=== PATIENT | female | born 1930 | race Caucasian/White ===

== ENCOUNTER 2017-06-28 18:37 | Emergency (ER) | payer OTHER ==
[~2017-06-28] VITALS: Ht 162.6 cm; Wt 74.0 kg
[~2017-06-28 18:37] MED LIST: AMOX500T PO; ENAL10TA7 PO; FLUO20TA20 PO; FURO20TA PO; GLUCTAB PO; LOVA20TA PO; POTA-243 PO; PROT40TA PO; REDCAP9 PO
[2017-06-28 18:41] VITALS: BP 172/77; PULSE 101; RESP 18; TEMP 98.2; O2SAT 95
[2017-06-28] MEDS ORDERED: LOVA20TA PO (18:59)
[2017-06-28] MEDS ORDERED: ENAL20TA PO (18:59)
[2017-06-28] MEDS ORDERED: OMEP20TA PO (18:59)
--- NOTE | 2017-06-28 19:22 | PD ---
HPI Chief Complaint: Cold / Flu Symptoms Time Seen by Provider: 19:15 Travel History International Travel<30 days: No Contact w/Intl Traveler<30days: No Traveled to known affect area: No History of Present Illness HPI 87-year-old female presents to the emergency department by private transportation the care of her daughter for evaluation of cough. According to the patient and the daughter she's had a cough for approximately 5-7 days. Cough is productive of white sputum. Patient has cough intermittently. Patient does not report any associated shortness of breath orthopnea or paroxysmal nocturnal dyspnea. No voiced complaint of recent long distance travel protracted bedrest her surgical procedure. No peripheral edema. No chest pain and no pleuritic chest pain. Patient had 1 day of fever but none subsequently. Patient did have the pneumonia vaccine and flu vaccine in May. Patient has history of hypertension diabetes dyslipidemia and prior CHF. Patient has not had to take any acetaminophen or ibuprofen. Patient went to urgent care today where she had a chest x-ray performed reportedly and was told that it was abnormal in that she is comes the emergency room to have the chest x-ray repeated and be reevaluated. Patient does not report any headache sinus pressure or congestion sore throat earache chest pain myalgias arthralgias abdominal pain nausea vomiting diarrhea urinary symptoms or peripheral edema. No report of injury. Patient and daughter at the bedside report that she feels well she just decided to be evaluated because her cough is not resolving. PFSH Past Medical History Narrative Medical Hypertension diabetes dyslipidemia CHF diverticulosis/diverticulitis; appendectomy colectomy cholecystectomy; no tobacco use; nursing notes reviewed Hx Anticoagulant Therapy: No Depression: Yes Cardiovascular Problems: Yes (HTN, CHOL) High Cholesterol: Yes Congestive Heart Failure: Yes Diabetes: Yes Diminished Hearing: Yes Diverticulitis: Yes GERD: Yes Hypertension: Yes Immunizations Current: Yes ?: Not Menopausal: Yes Past Surgical History Abdominal Surgery: Yes (COLON SURGERY- resection r/t diverticulitis, LIVER CYST ) Appendectomy: Yes Cholecystectomy: Yes Genitourinary Surgery: Yes (BLADDER SUSP) Hysterectomy: Yes Social History Alcohol Use: No Tobacco Use: No Substance Use: No Allergies-Medications (Allergen,Severity, Reaction): Coded Allergies: codeine (Unverified Allergy, Mild, 06/28/17) Reported Meds & Prescriptions Reported Meds & Active Scripts Active Reported Enalapril (Enalapril Maleate) 20 Mg Tab 20 Mg PO DAILY Omeprazole 20 Mg Tab 20 Mg PO DAILY Lovastatin 20 Mg Tab 20 Mg PO DAILY Review of Systems Except as stated in HPI: all other systems reviewed are Neg General / Constitutional: Positive: Fever (times one), No: Chills HENT: Positive: Rhinorrhea (occasional clear rhinorrhea), No: Headaches, Sore Throat, Congestion, Neck Stiffness Cardiovascular: No: Chest Pain or Discomfort, Diaphoresis, Dyspnea on exertion , Edema Respiratory: Positive: Cough, No: Shortness of Breath, Wheezing, Orthopnea, Pleuritic Pain Gastrointestinal: No: Nausea, Vomiting, Diarrhea, Abdominal Pain Genitourinary: No: Dysuria, Flank Pain Musculoskeletal: No: Myalgias, Arthralgias Skin: No Rash Neurologic: No: Weakness Psychiatric: No: Anxiety Hematologic/Lymphatic: No: Easy Bruising Physical Exam Narrative GENERAL: Well-developed well-nourished female in no acute distress no respiratory distress resting supine on exam stretcher; T; 98.2; RR: 18; BP: 172/ 77; O2sat RA 95-98%; HR: 101; GCS 15 SKIN: Warm and dry. HEAD: Normocephalic. EYES: No scleral icterus. No injection or drainage. NECK: Supple, trachea midline. No JVD or lymphadenopathy. CARDIOVASCULAR: Regular rate and rhythm without murmurs, gallops, or rubs. RESPIRATORY: Breath sounds equal bilaterally with few bibasilar crackles. No accessory muscle use. GASTROINTESTINAL: Abdomen soft, non-tender, nondistended. MUSCULOSKELETAL: No cyanosis, or edema. Bilateral radial and dorsalis pedis pulses 2++= BACK: Nontender without obvious deformity. No CVA tenderness. Data Data Last Documented VS Vital Signs Date Time Temp Pulse Resp B/P (MAP) Pulse Ox O2 Delivery O2 Flow Rate FiO2 06/28/17 19:24 85 16 151/86 (107) 96 06/28/17 19:00 Room Air 06/28/17 18:41 98.2 Orders Orders Chest, Pa & Lat (06/28/17 ) MDM Medical Decision Making Medical Screen Exam Complete: Yes Emergency Medical Condition: Yes Medical Record Reviewed: Yes Interpretation(s) Last Impressions Chest X-Ray 06/28/17 0000 Signed Impressions: Service Date/Time: Wednesday, June 28, 2017 19:47 - CONCLUSION: No acute disease. Matt Romo MD Vital Signs Date Time Temp Pulse Resp B/P (MAP) Pulse Ox O2 Delivery O2 Flow Rate FiO2 06/28/17 19:24 85 16 151/86 (107) 96 06/28/17 19:00 18 98 Room Air 06/28/17 18:41 98.2 101 18 172/77 (108) 95 Differential Diagnosis Cough, viral syndrome, bronchitis, chf, abnormal chest x-ray Narrative Course CXR PA and lateral views ordered Patient with daughter at bedside informed of imaging results and radiologist reading; patient has remained stable in the emergency department feels well and no further intervention indicated this time and patient is not wanting further evaluation. Patient stable for outpatient management and follow-up with her primary care provider. Diagnosis Primary Impression: Cough Additional Impression: Viral syndrome Referrals: Primary Care Physician call for appointment Patient Instructions: General Instructions Additional Instructions: Follow-up with her primary care provider Monitor temperature every 4 hours with thermometer take as needed acetaminophen/ Tylenol as needed for fever 100.4F or greater May use [id number] guaifenesin such as Mucinex or Robitussin cough medicine May use as tolerated Zyrtec once daily for allergy symptoms Do NOT recommend using [id number] decongestants Return to the emergency for for any concerns Increase fluid hydration Disposition: 01 DISCHARGE HOME Condition: Stable Eli Albright MD Jun 28, 2017 19:22
[2017-06-28 19:24] VITALS: BP 151/86; PULSE 85; RESP 16; O2SAT 96
--- NOTE | 2017-06-28 20:10 | RADRPT ---
EXAM DATE/TIME: 06/28/2017 19:47 [facility] COMPARISON: CHEST SINGLE AP, December 11, 2015, 14:27. INDICATIONS : Cough. MEDICAL HISTORY : None. SURGICAL HISTORY : None. ENCOUNTER: Initial ACUITY: 1 week PAIN SCORE: 3/10 LOCATION: Bilateral chest FINDINGS: PA and lateral views of the chest demonstrate the lungs to be symmetrically aerated without evidence of mass, infiltrate or effusion. The cardiomediastinal contours are unremarkable with atheroscleroti c calcifications are now. Osseous structures are intact. CONCLUSION: No acute disease. Matt Romo MD on June 28, 2017 at 20:07 Board Certified Radiologist. This report was verified electronically.
[2017-06-28 20:32] VITALS: BP 152/78
== END 2017-06-28 20:32 | disposition home or self-care (01) ==
LOC: PHED 18:37
DX: R05 Cough (principal); B34.9 Viral infection, unspecified; I50.9 Heart failure, unspecified; I11.0 Hypertensive heart disease with heart failure; E11.9 Type 2 diabetes mellitus without complications; E78.00 Pure hypercholesterolemia, unspecified; K21.9 Gastro-esophageal reflux disease without esophagitis
CPT/HCPCS: 71020; 99283